=== PATIENT | female | born 2000 | race Hispanic/Latino ===

== ENCOUNTER → 2022-09-11 | Outpatient (CLI) | payer OTHER ==
[~2022-09-11] VITALS: Ht 15.2 cm; Wt 145.1 kg
== END | disposition home or self-care (01) ==
LOC: DTH 08:58
PROVIDERS: ATTEND Surgery
DX: Z71.3 Dietary counseling and surveillance (principal); E66.01 Morbid (severe) obesity due to excess calories; K21.9 Gastro-esophageal reflux disease without esophagitis; G47.33 Obstructive sleep apnea (adult) (pediatric); Z68.41 Body mass index [BMI] 40.0-44.9, adult
CPT/HCPCS: 97802

== ENCOUNTER → 2025-03-22 | Outpatient (CLI) | payer MEDICAID ==
--- NOTE | 2025-03-22 16:26 | HMCIMG ---
US PELVIC NON-OB LIMITED HISTORY: Mixed incontinence COMPARISON: None TECHNIQUE: Bladder ultrasound study was performed. FINDINGS: Prevoid bladder volume is 150 cc. No evidence of postvoid residual is seen. Bladder wall measures 2 mm. Bladder is moderately distended. IMPRESSION: 1. No acute finding.
--- NOTE | 2025-03-22 16:38 | HMCIMG ---
US PELVIC NON-OB COMP HISTORY: No additional history given. COMPARISON: None TECHNIQUE: Transabdominal pelvic ultrasound study was performed. FINDINGS: The uterus measures 10.1 x 4.2 x 4.5 cm. The right ovary measures 4 x 1.6 x 2.8 cm. The left ovary measures 3.1 x 2.7 x 2.6 cm. Flow is seen in both ovaries. There are bilateral ovarian follicles versus cysts with the largest on the left measuring 18. Endometrial thickness is 3 mm there No free fluid is seen in the cul-de-sac. IMPRESSION: 1. No adnexal mass is seen.
== END | disposition home or self-care (01) ==
LOC: RAH 14:49
PROVIDERS: ATTEND Internal Medicine
DX: N93.9 Abnormal uterine and vaginal bleeding, unspecified (principal); N39.46 Mixed incontinence; N32.89 Other specified disorders of bladder
CPT/HCPCS: 76856; 76857